=== PATIENT | male | born 1955 | race Caucasian/White ===

== ENCOUNTER 2022-06-25 07:10 | Outpatient (REF) | payer OTHER, SELFPAY ==
--- NOTE | ~2022-06-25 | CT_ITS ---
EXAMINATION: CT MAXILLOFACIAL WITHOUT CONTRAST CLINICAL INFORMATION: Deviated nasal septum, sinonasal polyp COMPARISON: None TECHNIQUE: Multidetector helical imaging was performed in the axial plane using landmarks protocol with generation of coronal and sagittal reformatted images. This CT examination was performed using dose optimization techniques as appropriate, variously including the following: *Automated exposure control *Adjustment of mA and/or kV according to patient size (this includes techniques or standardized protocols for targeted exams where dose is matched to indication/reason for exam; i.e. extremities or head) *Use of iterative reconstruction technique DLP: 101.42 mGy-cm FINDINGS: FRONTAL SINUSES AND DRAINAGE PATHWAYS: The frontal sinuses are clear. The frontal recesses are patent. MAXILLARY SINUSES AND DRAINAGE PATHWAYS: Trace mucosal thickening in the alveolar recesses of the maxillary sinuses. The maxillary ostia and infundibula are patent. ETHMOID SINUSES: The ethmoid air cells are clear. The ethmoid roofs appear intact and are symmetric. SPHENOID SINUS AND DRAINAGE PATHWAYS: Small mucous retention cysts in the floor of the right sphenoid sinus. The sphenoid ostia and sphenoethmoidal recesses are patent. Bilateral pneumatization of the anterior clinoid processes NASAL PASSAGE: The nasal passages are clear. The osseous nasal septum is slightly deviated to the left ADDITIONAL RELEVANT FINDINGS: The lamina papyracea are intact. No demonstrated abnormalities of the orbits. Left lens extraction. The carotid canals are normally covered by bone. There is erosion of the posterior left maxillary alveolar ridge with partially visualized molar tooth remnant. The temporomandibular joints are normal. The mastoid air cells and middle ear cavities are well aerated. Limited evaluation of the intracranial structures without significant abnormalities. CT/CT sinus wo IV con IMPRESSION: 1. Trace mucosal thickening in the alveolar recesses of the maxillary sinuses and small mucous retention cyst in the right sphenoid sinus. The paranasal sinuses are otherwise clear. 2. Erosion of the posterior left maxillary alveolar ridge, likely odontogenic, with partially visualized molar tooth remnant. Correlate with direct inspection.
== END 2022-06-25 07:11 | disposition home or self-care (01) ==
LOC: HO.CT 07:10
PROVIDERS: Visit Provider Otolaryngology
DX: J33.0 Polyp of nasal cavity (principal); J34.2 Deviated nasal septum
CPT/HCPCS: 70486

== ENCOUNTER 2024-10-18 10:18 | Outpatient (AMB) | payer MEDICARE, OTHER, SELFPAY ==
--- OUTSIDE RECORDS SUMMARY | 2024-10-18 11:35 | XMS_ITS | Encounter Summary ---
Author Organization [facility] Address [address] [place] [address] Phone Care Team Providers Care Veneer Cutter Name Role Phone Rosalia Cano MD Primary Care Provid er Encounter Details Date Type Department Care Team (Late st Contact Info) Description 04/21/2024 Procedure Pass [facility], Ct Scan - [facility] [address] [place] [address] Social History Tobacco Use Types Packs/Day Years Used Date Smoking Tobacco: Former Cigarettes Q uit: 2018 Smokeless Tobacco: Never Alcohol Use Standard Drinks/Week Comments Yes 14 (1 standard drink = 0.6 oz pu re alcohol) 1-2 per day Education Answer Date Recorded Are you interested in more education? Not on santos e 06/27/2022 Are you concerned about learning? Not on file 06/27/2022 No 06/27/2022 No 06/27/2022 Food Answer Date Recorded Within the past 6 months we worried whether our food would run out before we got money to buy more. Never True 04/24/2024 Within the past 6 months the food we bought just didn't last and we didn't have enough money to get more. Never True Residential Stability Answer Date Recor ded What is your housing situation today? I have jen sing 04/24/2024 How many times have you move d in the past 12 months? Zero (I did not move) 04/24/2024 Paying for Meds Answer Date Recorded Do you have trouble paying for medicines? No 04/24/2024 Paying Utility Bills Answer Date Record ed Do you have trouble paying your heating or elect ricity bill? No 04/24/2024 Transportation Answer Date Recorded Has the lack of transportati on kept you from medical appointments or from getting medications? No 04/24/2024 Digital Access Answer Date Recorded No 04/24/2024 Yes 04/24/2024 Do you have reliable internet access at home? Ye s 04/24/2024 Do you have a device (e.g., phone, tablet, computer) with a working camera? Yes 04/24/2024 Intimate Partner Violence Answer Date R ecorded Are you denied basic needs s uch as food, clothing, or medical care? No 04/24/2024 In the past 12 months have y ou been in a relationship with a person who hurts, threatens, or tries to control you? No 04/24/2024 Are you denied basic needs s uch as food, clothing, or medical care? No 04/24/2024 In the past 12 months have y ou been in a relationship with a person who hurts, threatens, or tries to control you? No 04/24/2024 Sex and Gender Information Value Date Recorded Sex Assigned at Male 12/31/2017 9:36 AM EDT Legal Sex Male 9:53 PM EDT Gender Identity Male 12/31/2017 9:36 AM EDT Sexual Orientation Straight 12/31/2017 9: 36 AM EDT documented as of this encounter Functional Status * Calculated C-SSRS Risk Score (Lifetime/Recent) Answer Date of Assessment Author No Risk Indicated 04/24/2024 7:20 PM Kassy Bangura RN * [place] Suicide Severity Rating Scale (Screener/Recent Self-Report) Question Answer Date of Assessment Author 1. Wish to be (Past 1 Month) No 04/24/2024 7:20 PM Kassy Bangura RN 2. Non-Specific Active Suici vin Thoughts (Past 1 Month) No 04/24/2024 7:20 PM Carmen Bangura RN 6. Suicidal Behavior (Lifetime) No 7:20 PM Kassy Bangura RN documented as of this encounter Plan of Treatment Upcoming Encounters Date Type Department Care Team (Late st Contact Info) Description 11/28/2024 12:00 PM EDT Appointment [facility] Vascular Ultrasound Diagnostic Laboratory [address], 9th [address], [address] [place] [address] Yolanda Wei MD [address] [facility] [address] [place] [address] [email or web address] 11/28/2024 1:30 PM EDT Office Visit [facility] Vascular Surgery [address] [facility], 4th Floor, [address] [place] [address] Yolanda Wei MD [address] [place] [address] [address] [place] [address] [email or web address] documented as of this encounter Visit Diagnoses Not on filedocumented in this encounter Additional Health Concerns Infection Onset Date Last Indicated Resolved Time CoV-Risk Comment:Per note documentation 05/04/2024 05/04/2024 7:14 AM EST documented as of this encounter Care Teams Veneer Cutter Relationship Specialty Start Date End Date Rosalia Cano MD [address] [address] PCP - General Internal Medicine 04/21/24 documented as of this encounter Additional Source Comments The information contained in this document represents components of the legal health record. It is not the complete legal health record.[facility]
== END 2024-10-18 10:50 | disposition home or self-care (01) ==
LOC: HO.HMGAL 10:18
PROVIDERS: PCP Family Medicine; Visit Provider Registered Nurse Emergency
DX: J30.89 Other allergic rhinitis (principal)
CPT/HCPCS: 95117; 95165

== ENCOUNTER 2025-01-23 10:35 | Outpatient (AMB) | payer MEDICARE, SELFPAY ==
--- OUTSIDE RECORDS SUMMARY | 2025-01-23 13:09 | XMS_ITS | Encounter Summary ---
Author Organization [facility] Address [address] [place] [address] Phone Care Team Providers Care Record Clerk Name Role Phone Rosalia Cano MD Primary Care Provid er Encounter Details Date Type Department Care Team (Late st Contact Info) Description 04/21/2024 Procedure Pass [facility], Ct Scan - [facility] [address] [place] [address] Social History Tobacco Use Types Packs/Day Years [...] 04/24/2024 7:20 PM Kassy Bangura RN * [place] Suicide Severity Rating Scale (Screener/Recent Self-Report) Question Answer Date of Assessment Author 1. Wish to be (Past 1 Month) No 04/24/2024 7:20 PM Kassy Bangura RN 2. Non-Specific Active Suici vin Thoughts (Past 1 Month) No 04/24/2024 7:20 PM Carmen Bangura RN 6. Suicidal Behavior (Lifetime) No 7:20 PM Kassy Bangura RN documented as of this encounter Plan of Treatment Not on file documented as of this encounter Visit Diagnoses Not on filedocumented in this encounter Additional Health Concerns Infection Onset Date Last Indicated Resolved Time CoV-Risk Comment:Per note documentation 05/04/2024 05/04/2024 7:14 AM EST documented as of this encounter Care Teams Record Clerk Relationship Specialty Start Date End Date Rosalia Cano MD [address] [address] PCP - General Internal Medicine 04/21/24 documented as of this encounter Additional Source Comments The information contained in this document represents components of the legal health record. It is not the complete legal health record.[facility]
--- OUTSIDE RECORDS SUMMARY | 2025-01-23 13:09 | XMS_ITS | Encounter Summary ---
Author Organization [facility] Address [address] [place] [address] Phone Care Team Providers Care Supervisor Component Assembler Name Role Phone Lindy Acosta MD Primary Care Provider Rosalia Cano MD Primary Care Provid er Encounter Details Date Type Department Care Team (Late st Contact Info) Description 11/16/2019 Procedure Pass [facility] Admitting Dept Virtual Department [address] [place] [address] Social History Tobacco Use Types Packs/Day Years Used Date Smoking Tobacco: Former Cigarettes Q uit: 2018 Smokeless Tobacco: Never Alcohol Use Standard Drinks/Week Comments Yes 14 (1 standard drink = 0.6 oz pu re alcohol) 1-2 per day Sex and Gender Information Value Date Recorded Sex Assigned at Male 12/31/2017 9:36 AM EDT Legal Sex Male 9:53 PM EDT Gender Identity Male 12/31/2017 9:36 AM EDT Sexual Orientation Straight 12/31/2017 9: 36 AM EDT documented as of this encounter Plan of Treatment Not on file documented as of this encounter Visit Diagnoses Not on filedocumented in this encounter Additional Health Concerns Infection Onset Date Last Indicated Resolved Time CoV-Risk Comment:Per note documentation 05/04/2024 05/04/2024 7:14 AM EST documented as of this encounter Care Teams Supervisor Component Assembler Relationship Specialty Start Date End Date Lindy Acosta MD [email or web address] PCP - General Family Medicine 12/31/17 04/20/24 Rosalia Cano MD [address] [address] PCP - General Internal Medicine 04/21/24 documented as of this encounter Additional Source Comments The information contained in this document represents components of the legal health record. It is not the complete legal health record.[facility]
--- OUTSIDE RECORDS SUMMARY | 2025-01-23 13:10 | XMS_ITS | Encounter Summary ---
Author Organization [facility] Address [address] [place] [address] Phone Care Team Providers Care Delicate Fabrics Presser Name Role Phone Rosalia Cano MD Primary Care Provid er Encounter Details Date Type Department Care Team (Late st Contact Info) Description 04/21/2024 Procedure Pass [facility], Ct Scan - [facility] [address] [place] [address] Social History Tobacco Use Types Packs/Day Years [...] 04/24/2024 7:20 PM Kassy Bangura RN * [place] Suicide Severity Rating Scale (Screener/Recent Self-Report) Question [...] documented as of this encounter Care Teams Delicate Fabrics Presser Relationship Specialty Start Date End Date Rosalia Cano MD [address] [address] PCP - General Internal Medicine 04/21/24 documented as of this encounter Additional Source Comments The information contained in this document represents components of the legal health record. It is not the complete legal health record.[facility]
--- OUTSIDE RECORDS SUMMARY | 2025-01-23 13:10 | XMS_ITS | Encounter Summary ---
Author Organization [facility] Address [address] [place] [address] Phone Care Team Providers Care Vending Machine Filler Name Role Phone Rosalia Cano MD Primary Care Provid er Encounter Details Date Type Department Care Team (Late st Contact Info) Description 05/04/2024 Procedure Pass [facility], Ct Scan - [facility] [address] [place] [address] Social History Tobacco Use Types Packs/Day Years Used Date Smoking Tobacco: Former Cigarettes Q uit: 2018 Smokeless Tobacco: Never Alcohol Use Standard Drinks/Week Comments Yes 14 (1 standard drink = 0.6 oz pu re alcohol) 1-2 per day Home Health Assessment: Transportation Answer Date Recorded Lack of Transportation (Medical) Yes 05/01/2024 Lack of Transportation (Non-Medical) Yes 05/01/2024 Patient Unable or Declines to Respond No 05/01/2024 Education Answer Date Recorded Are you interested in more education? Not on asntos e 06/27/2022 Are you concerned about learning? Not on file 06/27/2022 No 06/27/2022 No 06/27/2022 Food Answer Date Recorded Within the past 6 months we worried whether our food would run out before we got money to buy more. Never True 05/04/2024 Within the past 6 months the food we bought just didn't last and we didn't have enough money to get more. Never True Residential Stability Answer Date Recor ded What is your housing situation today? I have jen jacobo 05/04/2024 How many times have you move d in the past 12 months? Zero (I did not move) 05/04/2024 Paying for Meds Answer Date Recorded Do you have trouble paying for medicines? No 05/04/2024 Paying Utility Bills Answer Date Record ed Do you have trouble paying your heating or elect ricity bill? No 05/04/2024 Transportation Answer Date Recorded Has the lack of transportati on kept you from medical appointments or from getting medications? No 05/04/2024 Digital Access Answer Date Recorded No 05/04/2024 Yes 05/04/2024 Do you have reliable internet access at home? Ye s 05/04/2024 Do you have a device (e.g., phone, tablet, computer) with a working camera? Yes 05/04/2024 Intimate Partner Violence Answer Date R ecorded Are you denied basic needs s uch as food, clothing, or medical care? No 05/04/2024 In the past 12 months have y ou been in a relationship with a person who hurts, threatens, or tries to control you? No 05/04/2024 Are you denied basic needs s uch as food, clothing, or medical care? No 05/04/2024 In the past 12 months have y ou been in a relationship with a person who hurts, threatens, or tries to control you? No 05/04/2024 Sex and Gender Information Value Date Recorded Sex Assigned at Male 12/31/2017 9:36 AM EDT Legal Sex Male 9:53 PM EDT Gender Identity Male 12/31/2017 9:36 AM EDT Sexual Orientation Straight 12/31/2017 9: 36 AM EDT documented as of this encounter Functional Status * Calculated C-SSRS Risk Score (Lifetime/Recent) Answer Date of Assessment Author No Risk Indicated 05/04/2024 9:00 PM Emily Oropeza RN * [place] Suicide Severity Rating Scale (Screener/Recent Self-Report) Question Answer Date of Assessment Author 1. Wish to be (Past 1 Month) No 05/04/2024 9:00 PM Emily Oropeza RN 2. Non-Specific Active Suicidal Thoughts (Past 1 Month) No 05/04/2024 9:00 PM EST Emily Frank RN 6. Suicidal Behavior (Lifetime) No 05/04/2024 9:00 PM EST Emily Frank RN documented as of this encounter Plan of Treatment Not on file documented as of this encounter Visit Diagnoses Not on filedocumented in this encounter Additional Health Concerns Infection Onset Date Last Indicated Resolved Time CoV-Risk Comment:Per note documentation 05/04/2024 05/04/2024 7:14 AM EST documented as of this encounter Care Teams Vending Machine Filler Relationship Specialty Start Date End Date Rosalia Cano MD [address] [address] PCP - General Internal Medicine 04/21/24 documented as of this encounter Additional Source Comments The information contained in this document represents components of the legal health record. It is not the complete legal health record.[facility]
--- OUTSIDE RECORDS SUMMARY | 2025-01-23 13:10 | XMS_ITS | Encounter Summary ---
Author Organization [facility] Address [address] [place] [address] Phone Care Team Providers Care Psychiatric Attendant Name Role Phone Rosalia Cano MD Primary Care Provid er Encounter Details Date Type Department Care Team (Late st Contact Info) Description 05/04/2024 Procedure Pass [facility], [facility] [address] [place] [address] Social History Tobacco Use Types Packs/Day Years [...] housing situation today? I have jen sing 05/04/2024 How many times have you move [...] 05/04/2024 9:00 PM Emily Oropeza RN * [place] Suicide Severity Rating Scale (Screener/Recent Self-Report) Question [...] documented as of this encounter Care Teams Psychiatric Attendant Relationship Specialty Start Date End Date Rosalia Cano MD [address] [address] PCP - General Internal Medicine 04/21/24 documented as of this encounter Additional Source Comments The information contained in this document represents components of the legal health record. It is not the complete legal health record.[facility]
--- OUTSIDE RECORDS SUMMARY | 2025-01-23 13:10 | XMS_ITS | Encounter Summary ---
Author Organization [facility] Address [address] [place] [address] Phone Care Team Providers Care Brush Stainer Name Role Phone Rosalia Cano MD Primary Care Provid er Encounter Details Date Type Department Care Team (Late st Contact Info) Description 05/04/2024 Procedure Pass [facility], Ct Scan - [facility] [address] [place] [address] Social History Tobacco Use Types Packs/Day Years [...] 05/04/2024 9:00 PM Emily Oropeza RN * [place] Suicide Severity Rating Scale (Screener/Recent Self-Report) Question [...] documented as of this encounter Care Teams Brush Stainer Relationship Specialty Start Date End Date Rosalia Cano MD [address] [address] PCP - General Internal Medicine 04/21/24 documented as of this encounter Additional Source Comments The information contained in this document represents components of the legal health record. It is not the complete legal health record.[facility]
--- OUTSIDE RECORDS SUMMARY | 2025-01-23 13:10 | XMS_ITS | Clinical Summary ---
Author Organization [facility] Address [address] [place] [address] Phone Care Team Providers Care Assistant Banquet Manager Name Role Phone Rosalia Cano MD Primary Care Provid er Allergies No known active allergies Medications tamsulosin (FLOMAX) 0.4 mg Cap Take 0.4 mg by mouth daily. Active finasteride (PROSCAR) 5 mg tablet Take 5 mg by mouth daily. Active amLODIPine (NORVASC) 10 MG tablet Take 5 mg by mouth daily. 5 Active albuterol 90 mcg/actuation inhaler Inhale 1 puff into the lungs every 6 (six) hours as needed. 5 Active fluticasone propion-salmete roL (ADVAIR DISKUS) 100-50 mcg/dose DISKUS Inhale 100 mcg/actuation of fluticasone into the lungs 2 (two) times a day. 4 Active acetaminophen (TYLENOL) 325 mg tablet Take 2 tablets (650 mg total) by mouth every 6 (six) hours as needed for pain (specific location in comments). 5 Active oxyCODONE 5 MG immediate release tablet Take 1 tablet (5 mg total) by mouth every 6 (six) hours as needed for pain (specific location in comments). Partial fill ok 10 tablet 5 Active Additional Information Patient not taking.Reported on 11/28/2024 atorvastatin (LIPITOR) 80 MG tablet Take 1 tablet (80 mg total) by mouth daily. 30 tablet 2 5 Active aspirin 81 MG EC tablet Take 1 tablet (81 mg total) by mouth daily. 5 Active clopidogrel (PLAVIX) 75 mg tablet Take 75 mg by mouth daily. Active Active Problems Problem Noted Date Diagnosed Date Dizziness 05/04/2024 Assessment & Plan (05/05/2024 3:54 PM EST): -Patient presented with persistent dizziness since yesterday which was initially happening with position changes but progressively worsened. After lying flat on a stretcher with EMS patient felt he had difficulty with word finding and concentration and being able to follow commands but reports that as soon as he was sat up in his stretcher in the ED he felt significantly better and all of the symptoms resolved except the dizziness -CT head showed no new pathology, CTA head and neck showed postoperative changes -ED discussed case with neurology and further workup with MRI brain was recommended -ED also discussed case with patient's vascular team and a carotid Doppler was recommended -Monitor on tele -PT/OT eval -Continue aspirin, Plavix and high-dose statin MRI revealing some punctate hemorrhages, carotid study pending read Will contact neuro once I have results of both tests Assessment & Plan (05/04/2024 8:45 PM EST): -Patient presented with persistent dizziness since yesterday which was initially happening with position changes but progressively worsened. After lying flat on a stretcher with EMS patient felt he had difficulty with word finding and concentration and being able to follow commands but reports that as soon as he was sat up in his stretcher in the ED he felt significantly better and all of the symptoms resolved except the dizziness -CT head showed no new pathology, CTA head and neck showed postoperative changes -ED discussed case with neurology and further workup with MRI brain was recommended -ED also discussed case with patient's vascular team and a carotid Doppler was recommended -Monitor on tele -PT/OT eval -Continue aspirin, Plavix and high-dose statin HTN (hypertension) 05/04/2024 Assessment & Plan (05/05/2024 3:54 PM EST): -BP controlled, hold norvasc for permissive htn Assessment & Plan (05/04/2024 8:45 PM EST): -BP controlled, hold norvasc for permissive htn COPD (chronic obstructive pulmonary disease) 06/2024 Assessment & Plan (05/05/2024 3:54 PM EST): -Currently no SOB/wheezing -Continue advair and prn albuterol Assessment & Plan (05/04/2024 8:45 PM EST): -Currently no SOB/wheezing -Continue advair and prn albuterol Acute ischemic stroke 04/30/2024 Right arm weakness 04/23/2024 Assessment & Plan (04/23/2024 6:35 PM EST): -Per patient the symptoms initially started on , with him dropping a coffee mug and-increased weakness unable to utilize right arm to perform simple tasks such as making dinner. He is right arm dominant. -On exam does have ataxia in the right arm, no pronator drift, no drift in the right lower extremity. Strength testing somewhat decreased in the right hand in comparison to the left. -Suspect subacute CVA at this time -Neurology recommended MRI brain with and without contrast and MRI cervical spine for further evaluation of peripheral neuropathy if MRI brain negative Plan: MRI brain with and without contrast ordered MRI cervical spine ordered Echocardiogram ordered Continue ASA 81 mg and Plavix 75 mg daily along with atorvastatin 80 mg daily Continue every 4 hours neurochecks No need for permissive hypertension given outside window of acute presentation, resume home BP medications Further recommendations pending above studies. Encounters Date Type Department Care Team Description 11/28/2024 1:30 PM EDT Office Visit [facility] [address], 4[address], [address] [place] [address] Yolanda Wei MD Acute ischemic left MCA stroke (Primary Dx); Cerebral infarction due to embolism of left middle cerebral artery 11/28/2024 11:50 AM EDT - 11/28/2024 11:59 PM EDT Hospital Encounter [facility] [address], 9[address], [address] [place] [address] Yolanda Wei MD Discharge Disposition: Home or Self Care from Last 3 Months Immunizations Immunization Administration Dates Next Due Influenza High-Dose Trivalen t Preservative Free IM 05/06/2024(Deferred: Patient Refused) Social History Tobacco Use Types Packs/Day Years Used Date Smoking Tobacco: Former Cigarettes Q uit: 2018 Smokeless Tobacco: Never Tobacco Cessation:Counseling Given: Not Answered Alcohol Use Standard Drinks/Week Comments Yes 14 (1 standard drink = 0.6 oz pu re alcohol) 1-2 per day Home Health Assessment: Transportation Answer Date Recorded Lack of Transportation (Medical) No 05/20/2024 Lack of Transportation (Non-Medical) No 05/20/2024 Patient Unable or Declines to Respond No 05/20/2024 Education Answer Date Recorded Are you interested [...] Orientation Straight 12/31/2017 9: 36 AM EDT Last Filed Vital Signs Vital Sign Reading Time Taken Comments Blood Pressure 146/78 11/28/2024 1:32 PM EDT Pulse 64 11/28/2024 1:32 PM EDT Temperature 36.5 C (97.7 F) 05/13/2024 8:42 AM EDT Respiratory Rate 18 05/20/2024 9:14 AM EDT Oxygen Saturation 96% 05/20/2024 9:14 AM EDT Inhaled Oxygen Concentration - - Weight 73.2 kg (161 lb 6.4 oz) 05/06/2024 5:02 A M EST Height 175.3 cm (5' 9 ) 05/04/2024 9:20 AM EST Body Mass Index 23.83 05/04/2024 9:20 AM EST Plan of Treatment Health Maintenance Due Date Last Done Comments Adult Td,Tdap Booster 1955 DEPRESSION SCREENING 1968 SMOKING Hx and SMOKELESS TOB ACCO SCREENING 1969 HEPATITIS C SCREENING 1974 PNEUMOCOCCAL VACCINES (50+ y ears) (1 of 2 - PCV) 09/10/1975 COLOGUARD 2001 FIT TEST 2001 FOBT 2001 SIGMOIDOSCOPY 2001 VIRTUAL COLONOSCOPY 2001 RSV VACCINE (1 - Risk 50-74 years 1-dose series) 2006 ZOSTER VACCINES (1 of 2) 2006 ABDOMINAL AORTIC ANEURYSM (A AA) SCREENING 2021 INFLUENZA VACCINE (#1) 2024 COVID-19 VACCINE (1 - 2024-2 6 season) 2024 LIPID PANEL 04/23/2025 04/23/2024 BLOOD PRESSURE 05/28/2025 11/28/2024 COLONOSCOPY 11/15/2029 11/16/2019 COLORECTAL CANCER SCREENING 11/15/2029 HEPATITIS A VACCINES Aged Out No long er eligible based on patient's age to complete this topic HIB VACCINES Aged Out No longer eligi ble based on patient's age to complete this topic MENINGOCOCCAL VACCINES (ACWY) Aged Out No longer eligible based on patient's age to complete this topic MENINGOCOCCAL VACCINES (B) Aged Out N o longer eligible based on patient's age to complete this topic Medical Devices Implanted Type Area Under Seal Operator Device Identifier Shelf Expiration Date Model / Serial / Lot Patch Tapered .45mm 8cm Xw.8 Graft Tissue Vascular [employer]ologic - [id number] Implanted:Qty: 1 on 04/28/2024 by Yolanda Wei MD at [facility] Left: Carotid [employer] 08/27/2029 [id number] / / [id number] Procedures Procedure Name Priority Date/Time Associated Diagnosis Comments US CAROTID DUPLEX COMPLETE (BILATERAL) Routine 11/28/2024 12:45 PM EDT Acute ischemic left MCA stroke LIPID PANEL STAT 04/23/2024 5:21 PM EST ENDOSCOPY, COLON 11/16/2019 9:19 AM EDT from Last 3 Months or Most Recently Relevant to Health Maintenance Results * US Carotid Duplex Complete (Bilateral) (11/28/2024 12:45 PM EDT) Anatomical Region Laterality Modality Heart, Thoracic Vasculature, Neck Ultrasound 11/28/2024 12:5 1 PM EDT Narrative 11/29/2024 5:08 PM EDT CAROTID INDICATIONS / NOTES: hx LCEA; Carotid or vertebral occlusion TECHNIQUE: An ultrasound evaluation of the common carotid, internal carotid, external carotid, vertebral, and proximal subclavian arteries was performed using lebron scale, color Doppler and spectral analysis. RIGHT CCA (cm/s): Proximal Systolic 106 Proximal Diastolic 14 Mid Systolic 104 Mid Diastolic 11 Distal Systolic 61 Distal Diastolic 12 ICA (cm/s): Proximal Systolic 71 Proximal Diastolic 20 Mid Systolic 71 Mid Diastolic 21 Distal Systolic 71 Distal Diastolic 20 ECA (cm/s): Systolic 95 Diastolic 0 ICA/CCA Ratio: Systolic 1.2 ICA STENOSIS: <50% PLAQUE: Heterogeneous R VERTEBRAL: Antegrade Sys: 99 cm/s Meka: 18 cm/s R SUBCLAVIAN: Normal Velocity: 200 cm/s LEFT CCA (cm/s): Proximal Systolic 127 Proximal Diastolic 20 Mid Systolic 98 Mid Diastolic 14 Distal Systolic 64 Distal Diastolic 11 ICA (cm/s): Proximal Systolic 99 Proximal Diastolic 24 Mid Systolic 117 Mid Diastolic 28 Distal Systolic 73 Distal Diastolic 17 ECA (cm/s): Systolic 104 Diastolic 0 ICA/CCA Ratio: Systolic 1.8 ICA STENOSIS: <50% PLAQUE: Heterogeneous L VERTEBRAL: Antegrade Sys: 55 cm/s Meka: 10 cm/s L SUBCLAVIAN: Normal Velocity: 161 cm/s FINDINGS: Right: The common carotid, internal carotid and external carotid arteries are patent. Doppler flow velocities and waveform contours are within normal limits throughout. Minimal plaque is visualized in the distal common carotid, proximal internal carotid and external carotid arteries. There are elevated Doppler flow velocities within the vertebral artery, with associated post-stenotic turbulence. Left: The distal common carotid and proximal internal carotid arteries are patent, status-post carotid endarterectomy. The common carotid, internal carotid and external carotid arteries are patent. Doppler flow velocities and waveform contours are within normal limits throughout. Minimal plaque is visualized in the distal common carotid, proximal internal carotid and external carotid arteries. IMPRESSIONS: 1. No evidence of hemodynamically significant stenosis (<50%) noted in the right internal carotid artery. Minimal plaque visualized. 2. No evidence of hemodynamically significant stenosis (<50%) noted in the left internal carotid artery. Status-post carotid endarterectomy. 3. No significant stenosis in the external carotid arteries bilaterally. 4. >50% stenosis of the right vertebral artery. 5. Antegrade flow in the vertebral arteries, bilaterally. 6. Normal flow in both subclavian arteries. 7. Findings remain stable since prior exam performed on 06/13/2024. Disclaimer: The stenosis criteria for the carotid ultrasound reports have been updated to align with the latest national IAC accreditation requirements. This is essential for maintaining our high standards and ensuring accurate patient assessments. If you have any questions or need further clarification, please contact Dr. Luther Churchill, [place]. ATTESTATION: I, Dr. Duncan Royal as teaching physician, have reviewed the images for this case and if necessary edited the report originally created by ROWENA TOM. Procedure Note Duncan Royal MD - 11/29/2024 CAROTID INDICATIONS / NOTES: hx LCEA; Carotid or vertebral occlusion TECHNIQUE: An ultrasound evaluation of the common carotid, internal carotid, externalcarotid, vertebral, and proximal subclavian arteries was performed usinggray scale, color Doppler and spectral analysis. RIGHT CCA (cm/s): Proximal Systolic 106 Proximal Diastolic 14 Mid Systolic 104 Mid Diastolic 11 Distal Systolic 61 Distal Diastolic 12 ICA (cm/s): Proximal Systolic 71 Proximal Diastolic 20 Mid Systolic 71 Mid Diastolic 21 Distal Systolic 71 Distal Diastolic 20 ECA (cm/s): Systolic 95 Diastolic 0 ICA/CCA Ratio: Systolic 1.2 ICA STENOSIS: <50% PLAQUE: Heterogeneous R VERTEBRAL: Antegrade Sys: 99 cm/s Meka: 18 cm/s R SUBCLAVIAN: Normal Velocity: 200 cm/s LEFT CCA (cm/s): Proximal Systolic 127 Proximal Diastolic 20 Mid Systolic 98 Mid Diastolic 14 Distal Systolic 64 Distal Diastolic 11 ICA (cm/s): Proximal Systolic 99 Proximal Diastolic 24 Mid Systolic 117 Mid Diastolic 28 Distal Systolic 73 Distal Diastolic 17 ECA (cm/s): Systolic 104 Diastolic 0 ICA/CCA Ratio: Systolic 1.8 ICA STENOSIS: <50% PLAQUE: Heterogeneous L VERTEBRAL: Antegrade Sys: 55 cm/s Meka: 10 cm/s L SUBCLAVIAN: Normal Velocity: 161 cm/s FINDINGS: Right: The common carotid, internal carotid and external carotid arteries arepatent. Doppler flow velocities and waveform contours are within normallimits throughout. Minimal plaque is visualized in the distal commoncarotid, proximal internal carotid and external carotid arteries. There are elevated Doppler flow velocities within the vertebral artery,with associated post-stenotic turbulence. Left: The distal common carotid and proximal internal carotid arteries arepatent, status-post carotid endarterectomy. The common carotid, internal carotid and external carotid arteries arepatent. Doppler flow velocities and waveform contours are within normallimits throughout. Minimal plaque is visualized in the distal commoncarotid, proximal internal carotid and external carotid arteries. IMPRESSIONS: 1. No evidence of hemodynamically significant stenosis (<50%) noted in theright internal carotid artery. Minimal plaque visualized. 2. No evidence of hemodynamically significant stenosis (<50%) noted in theleft internal carotid artery. Status-post carotid endarterectomy. 3. No significant stenosis in the external carotid arteries bilaterally. 4. >50% stenosis of the right vertebral artery. 5. Antegrade flow in the vertebral arteries, bilaterally. 6. Normal flow in both subclavian arteries. 7. Findings remain stable since prior exam performed on 06/13/2024. Disclaimer: The stenosis criteria for the carotid ultrasound reports havebeen updated to align with the latest national IAC accreditationrequirements. This is essential for maintaining our high standards andensuring accurate patient assessments. If you have any questions or needfurther clarification, please contact Dr. Luther Churchill, [place]. ATTESTATION: I, Dr. Duncan Royal as teaching physician, have reviewedthe images for this case and if necessary edited the report originallycreated by ROWENA TOM. Yolanda Bran Wei MD CV US NEUROVASCULAR Final Result * (ABNORMAL) Lipid panel (04/23/2024 5:21 PM EST) HDL 51 mg/dL [facility] Comment: Interpretation <40 mg/dL: Low HDL cholesterol (major risk factor for CHD) Greater than or equal to 60 mg/dL: High HDL cholesterol ( negative risk factor for CHD) HDL - cholesterol is affected by a number of factors, e.g. smoking, excerise, hormones, sex and age. CHOLESTEROL 169 0 - 240 mg/dL [facility] TRIGLYCERIDES 101 30 - 160 mg/dL [facility] LDL 98 50 - 129 mg/dL [facility] Comment: LDL levels in terms of risk for coronary heart disease: <100 mg/dL: Optimal 100-129 mg/dL: Near or above optimal 130-159 mg/dL: Borderline high 160-189 mg/dL: High >190 mg/dL: Very High CARDIAC RISK RATIO 3.3(L) 3.4 - 5.0 [facility] Blood 04/23/2024 5:21 PM EST 04/23/2024 5:30 PM EST us Ryanne Colón PA-C LAB BLOOD BKR ORDERABLE S Final Result [facility] [address] [place] [address] * ENDOSCOPY, COLON (11/16/2019 9:19 AM EDT) Narrative Transcriptions Elie Young MD - 11/16/2019 9:19 AM EDT Patient Name: Paddy Parker Attending MD:: ELIE YUONG MD Procedure Date: 11/16/2019 9:19 AM Date of : 1955 Age: 64 Admit Type: Outpatient Gender: Male Room: [place] [address] Referring MD: LIDNY CARROLL MD Exam Type: Colonoscopy Indications: High risk colon cancer surveillance: Personalhistory of colonic polyps, Last colonoscopy: December 2009 Medications: Monitored Anesthesia Care Procedure: Informed consent was obtained from the patient after discussion of the indications, limitations, alternatives, benefits, and risks of the procedure. Risks specifically discussed include but are not limited to medication reactions, missed lesions, bleeding, perforation, or the need for emergentsurgery. Throughout the procedure, the patient's bloodpressure, pulse, end-tidal CO2, and oxygen saturations were monitored continuously. The Olympus adult variable colonoscope [id number] #3was introduced through the anus and advanced to the terminal ileum, with identification of theappendiceal orifice and IC valve. The patient tolerated the procedure well. The quality of the bowel preparation was good. The colonoscopy was technically difficultand complex due to restricted mobility of the colon. Complications: No immediate complications. Estimated blood loss:None. Findings: The terminal ileum appeared normal. Examination of the right colon was repeated in retroflexion and again in NBI. Retroflexion was also performed in the rectum. Multiple diverticula were found in the left colon. A 4 mm polyp was found in the rectum. The polyp was sessile. The polyp was removed with a cold snare. Resection and retrieval were complete. The exam was otherwise without abnormality. Internal hemorrhoids were found during retroflexion. The hemorrhoids were mild. Impression: - The examined portion of the ileum was normal. - Diverticulosis in the left colon. - One 4 mm polyp in the rectum, removed with a cold snare. Resected and retrieved. - The examination was otherwise normal. Recommendation: - Patient has a contact number available for emergencies. The signs and symptoms of potential delayed complications were discussed with thepatient. Return to normal activities tomorrow. Writtendischarge instructions were provided to the patient. - Await pathology results. - Repeat colonoscopy for surveillance based on pathology results. Elie Young ELIE YOUNG MD 11/16/2019 9:55:27 AM This report has been signed electronically. Number of Addenda: 0 Note Initiated On: 11/16/2019 9:19 AM Procedure Code(s): --- Professional --- 25352, Colonoscopy, flexible; with removal of tumor(s), polyp(s), or other lesion(s) by snare technique --- Technical --- 56627, Colonoscopy, flexible; with removal of tumor(s), polyp(s), or other lesion(s) by snare technique CPT copyright 2018 [employer]. All rights reserved. The codes documented in this report are preliminary and upon high court justice reviewmay be revised to meet current compliance requirements. Procedure Date: 11/16/2019 9:19:56 AM [address] [place] [address] Lindy Carroll MD GI PROCEDURE ORDERABLES Final Result from Last 3 Months or Most Recently Relevant to Health Maintenance Insurance [employer] POS PPO REPLACEMENT MEDICARE PART A & B [employer] POS PPO REPLACEMENT MEDICARE PART A & B [employer] [place] [employer] POS PPO REPLACEMENT MEDICARE PART A & B [employer] [place] [employer] POS PPO REPLACEMENT MEDICARE PART A & B [employer] [place] [employer] POS PPO REPLACEMENT MEDICARE PART A & B [employer] [place] [employer] POS PPO REPLACEMENT MEDICARE PART A & B Advance Directives For more information, please contact: [phone] (9AM - 5PM [facility], Thursday-Thursday) Documents on File Type Date Recorded Patient Collaborative Physician Expl anation Healthcare Proxy 04/26/2024 12:59 AM * Full Code (Latest Code Status on File) Date Activated Date Inactivated Comments 05/04/2024 8:31 PM Question Answer Comments Code Status Confirmed With: Patient * Full Code Date Activated Date Inactivated Comments 04/28/2024 2:13 PM 05/04/2024 8:31 PM Question Answer Comments Code Status Confirmed With: Patient * Full Code Date Activated Date Inactivated Comments 04/23/2024 7:15 PM 04/28/2024 2:13 PM Question Answer Comments Code Status Confirmed With: Patient Code Status Communicated To: Inpatient Attending Care Teams Assistant Banquet Manager Relationship Specialty Start Date End Date Rosalia Cano MD [address] [facility] [address] [place] [address] PCP - General Internal Medicine 04/21/24 Additional Source Comments The information contained in this document represents components of the legal health record. It is not the complete legal health record.[facility]
--- OUTSIDE RECORDS SUMMARY | 2025-01-23 13:11 | XMS_ITS | Encounter Summary ---
Author Organization [facility] Address [address] [place] [address] Phone Care Team Providers Care Motion Picture Set Up Worker Name Role Phone Rosalia Cano MD Primary Care Provid er Encounter Details Date Type Department Care Team (Late st Contact Info) Description 04/24/2024 Procedure Pass [facility] Cardiac US [address] [place] [address] Social History Tobacco Use Types Packs/Day Years [...] as food, clothing, or medical care? No 04/28/2024 In the past 12 months have y ou been in a relationship with a person who hurts, threatens, or tries to control you? No 04/28/2024 Are you denied basic needs s uch as food, clothing, or medical care? No 04/28/2024 In the past 12 months have y ou been in a relationship with a person who hurts, threatens, or tries to control you? No 04/28/2024 Sex and Gender Information Value Date Recorded [...] 04/24/2024 7:20 PM Kassy Bangura RN * [place] Suicide Severity Rating Scale (Screener/Recent Self-Report) Question [...] documented as of this encounter Care Teams Motion Picture Set Up Worker Relationship Specialty Start Date End Date Rosalia Cano MD [address] [address] PCP - General Internal Medicine 04/21/24 documented as of this encounter Additional Source Comments The information contained in this document represents components of the legal health record. It is not the complete legal health record.[facility]
--- OUTSIDE RECORDS SUMMARY | 2025-01-23 13:11 | XMS_ITS | Encounter Summary ---
Author Organization [facility] Address [address] [place] [address] Phone Care Team Providers Care Inpatient Auditor Name Role Phone Rosalia Cano MD Primary Care Provid er Encounter Details Date Type Department Care Team (Late st Contact Info) Description 04/28/2024 Procedure Pass [facility] [address] [place] [id number] Social History Tobacco Use Types Packs/Day Years [...] housing situation today? I have jen jacobo 04/24/2024 How many times have you move [...] documented as of this encounter Care Teams Inpatient Auditor Relationship Specialty Start Date End Date Rosalia Cano MD [address] [address] PCP - General Internal Medicine 04/21/24 documented as of this encounter Additional Source Comments The information contained in this document represents components of the legal health record. It is not the complete legal health record.[facility]
--- OUTSIDE RECORDS SUMMARY | 2025-01-23 13:11 | XMS_ITS | Encounter Summary ---
Author Organization [facility] Address [address] [place] [address] Phone Care Team Providers Care Senior Software Qa Analyst Name Role Phone Rosalia Cano MD Primary Care Provid er Encounter Details Date Type Department Care Team (Late st Contact Info) Description 04/23/2024 Procedure Pass [facility], [facility] [address] [place] [address] Social History Tobacco Use Types Packs/Day Years [...] 04/24/2024 7:20 PM Kassy Bangura RN * [place] Suicide Severity Rating Scale (Screener/Recent Self-Report) Question [...] documented as of this encounter Care Teams Senior Software Qa Analyst Relationship Specialty Start Date End Date Rosalia Cano MD [address] [address] PCP - General Internal Medicine 04/21/24 documented as of this encounter Additional Source Comments The information contained in this document represents components of the legal health record. It is not the complete legal health record.[facility]
--- OUTSIDE RECORDS SUMMARY | 2025-01-23 13:11 | XMS_ITS | Encounter Summary ---
Author Organization [facility] Address [address] [place] [address] Phone Care Team Providers Care Wet And Dry Sugar Bin Operator Name Role Phone Rosalia Cano MD Primary Care Provid er Encounter Details Date Type Department Care Team (Late st Contact Info) Description 04/21/2024 Procedure Pass [facility], [facility] [address] [place] [address] Social History Tobacco Use Types Packs/Day Years [...] 04/24/2024 7:20 PM Kassy Bangura RN * [place] Suicide Severity Rating Scale (Screener/Recent Self-Report) Question [...] documented as of this encounter Care Teams Wet And Dry Sugar Bin Operator Relationship Specialty Start Date End Date Rosalia Cano MD [address] [address] PCP - General Internal Medicine 04/21/24 documented as of this encounter Additional Source Comments The information contained in this document represents components of the legal health record. It is not the complete legal health record.[facility]
--- OUTSIDE RECORDS SUMMARY | 2025-01-23 13:11 | XMS_ITS | Encounter Summary ---
Author Organization [facility] Address [address] [place] [address] Phone Care Team Providers Care Lye Machine Operator Name Role Phone Rosalia Cano MD Primary Care Provid er Encounter Details Date Type Department Care Team (Late st Contact Info) Description 04/23/2024 Procedure Pass [facility], [facility] [address] [place] [address] Social History Tobacco Use Types Packs/Day Years [...] 04/24/2024 7:20 PM Kassy Bangura RN * [place] Suicide Severity Rating Scale (Screener/Recent Self-Report) Question Answer Date of Assessment Author 1. Wish to be (Past 1 Month) No 04/24/2024 7:20 PM Kassy Bangura RN 2. Non-Specific Active Suici vin Thoughts (Past 1 Month) No 04/24/2024 7:20 PM Carmen Bangura RN 6. Suicidal Behavior (Lifetime) No 7:20 PM Kasys Bangura RN documented as of this encounter Plan of Treatment Not on file documented as of this encounter Visit Diagnoses Not on filedocumented in this encounter Additional Health Concerns Infection Onset Date Last Indicated Resolved Time CoV-Risk Comment:Per note documentation 05/04/2024 05/04/2024 7:14 AM EST documented as of this encounter Care Teams Lye Machine Operator Relationship Specialty Start Date End Date Rosalia Cano MD [address] [address] PCP - General Internal Medicine 04/21/24 documented as of this encounter Additional Source Comments The information contained in this document represents components of the legal health record. It is not the complete legal health record.[facility]
== END 2025-01-23 10:35 | disposition home or self-care (01) ==
LOC: HO.HMGAL 10:35
PROVIDERS: PCP Pediatrics; Visit Provider Registered Nurse Emergency
DX: J30.89 Other allergic rhinitis (principal)
CPT/HCPCS: 95117; 95165